=== PATIENT | male | born 1940 | race Caucasian/White ===

== ENCOUNTER → 2017-09-13 08:47 | Outpatient (CLI) | payer MEDICARE, SELFPAY ==
[2017-09-13 09:08] VITALS: PULSE 55; PULSE 57; PULSE 59; PULSE 61; PULSE 67; PULSE 68; PULSE 69; O2SAT 96; O2SAT 97
--- NOTE | 2017-09-13 16:35 | WT_ITS ---
PSN 6 Minute Walk Test - 6 Minute Walk Test 6 Minute Walk Test: 6 Minute Walk Test PSN:6-Minute Walk Test Start: 09/13/17 09: 08 Freq: Status: Active Protocol: [id number] Document 09/13/17 09:08 SANDHYA (Rec: 09/13/17 09:10 SANDHYA [id number]) 6 Minute Walk Test Date Performed 09/13/17 Time Performed 09:00 Height 5 ft 10 in Weight: 86.183 kg Weight in Pounds 190.[address]: Marcio Durham Assistive device used: None Pre-test Oxygen Delivery Method Room Air Pulse Ox (%) 96 Pulse Rate (60-100 beats/min) 57 L Dyspnea Winston Scale (0-10) 0 Exertion Winston Scale (6-20) 6 1st minute Oxygen Delivery Method Room Air Pulse Ox (%) 97 Pulse Rate (60-100 beats/min) 59 L 2nd minute Oxygen Delivery Method Room Air Pulse Ox (%) 96 Pulse Rate (60-100 beats/min) 61 3rd minute Oxygen Delivery Method Room Air Pulse Ox (%) 96 Pulse Rate (60-100 beats/min) 67 4th minute Oxygen Delivery Method Room Air Pulse Ox (%) 96 Pulse Rate (60-100 beats/min) 68 5th minute Oxygen Delivery Method Room Air Pulse Ox (%) 96 Pulse Rate (60-100 beats/min) 69 6th minute Oxygen Delivery Method Room Air Pulse Ox (%) 97 Pulse Rate (60-100 beats/min) 69 Dyspnea Winston Scale (0-10) 0.5 Exertion Winston Scale (6-20) 12 Post-test Oxygen Delivery Method Room Air Pulse Ox (%) 97 Pulse Rate (60-100 beats/min) 55 L Full Laps Walked 17 Partial Lap, Number of Tiles Walked 64 Total Distance Walked (ft) 1067 - Interpretation Interpretation: The patient was able to ambulate 1067 feet over the course of 6 minutes on room air with no assistive devices or breaks. No significant desaturation or tachycardia was noted during testing. These findings are consistent with a musculoskeletal limitation exercise tolerance. - Recommendations Recommendations: No supplemental oxygen is indicated at this time.
== END ==
PROVIDERS: Family Provider Family Medicine; PCP Family Medicine; Visit Provider Internal Medicine
DX: I27.20 Pulmonary hypertension, unspecified (principal)
CPT/HCPCS: 94618

== ENCOUNTER → 2017-09-28 07:57 | Outpatient (CLI) | payer MEDICARE, SELFPAY ==
--- NOTE | 2017-09-29 08:38 | PFT ---
INTRODUCTION: The patient is a 77-year-old male, currently under the care of Dr. Durham, that presents for pulmonary function testing secondary to a diagnosis of COPD. Respiratory therapy reports good patient effort and reports no other concerns. Bronchodilators were used during testing. INTERPRETATION: Forced expiration spirometry demonstrates no evidence of a large airways obstructive ventilatory defect. There was no significant response to aerosolized bronchodilators, based upon strict ATS criteria. Spirograms are of good quality and plateau gradually. Body plethysmography was performed and reveals a decreased TLC to 5.16 L, 80% of predicted, indicative of a mild restrictive ventilatory defect. The remainder of the lung volumes are symmetrically reduced. Diffusing capacity by single breath CO is mildly reduced at 67% of predicted. 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 There are no previous pulmonary function studies available for comparison.
== END ==
PROVIDERS: Family Provider Family Medicine; PCP Family Medicine; Visit Provider Internal Medicine
DX: J44.9 Chronic obstructive pulmonary disease, unspecified (principal)
CPT/HCPCS: 94060; 94726; 94729

== ENCOUNTER 2024-10-20 10:13 | Outpatient (RCR) | payer MEDICARE, MEDICAID, SELFPAY ==
--- NOTE | 2024-10-20 16:39 | HP.SP.EVAL ---
Visit History Visit Info Date of Eval: 10/20/24 Visit: 1 Utility Locator: [facility] History Attending Doctor: Referring Doctor: Reason for Referral: DYSPHAGIA, HOARSENESS. RX HERE Date of Onset of Diagnosis: 2 months ago Previous speech therapy: Yes Other Relevant Medical History/Diagnoses/Surgery: COPD Smoking Status: Former smoker Diagnosis Diagnosis: Dysphagia, hoarseness Pain Is pain an issue with your current prescribed condition?: No Personal Preferred language: Kiswahili Patient Allergies Allergies Allergies: Allergies aspirin (From Percodan) Adverse Reaction (Unknown, Verified 08/09/24 13:51) Upset Stomach oxycodone (From Percodan) Adverse Reaction (Unknown, Verified 08/09/24 13:51) Upset Stomach Subjective Dysphagia Symptoms Reported Symptoms/Problems with: Hx of Pneumonia Other: Pt and reported that ENT stated pt looked weak Current Diet Solids Current Diet: Regular Current Diet Liquids Current Liquids: Thin Comments _: -: Pt and stated that pt has no difficulty with swallowing. Pt reported that he experienced hoarseness in his voice in the mornings but it returns to his normal vocal quality throughout the day. Completed oral motor exam, WNL this date. Voice Handicap Index (VHI) VHI VHI Administered: Yes VHI: Patient completed the Voice Handicap Index, which is a 30 item, self administered questionnaire that asks an individual to describe their voice and the effects of their voice on their life. Three subscales cover the areas of functional, emotional, and physical aspects of the voice disorders. Points from the questions can be combined to assign a total score, or they can be combined by subscale. Results for the VHI are as follows: Date: 10/20/24 VHI Test Total Severity Rating: Mild (0-30) Comments -: -: Pt stated that he experiences hoarseness in his voice in the mornings, but it subsides throughout the day. Pt stated that his vocal quality does not have a negative impact on his daily life at this time. Subjective Clinical Impression Adult Clinical Impression Vocal fatigue: a 'tired' voice or feeling of excessive effort to phonate: Present Voice deterioration: reduction of volume or vocal quality with prolonged use: Present Non-Phonatory Behaviors/Respiration Reduced loudness or vocal weakness: Present Limited breath support for speech: Present Reference: Neuro-QoL instrument Radiation Oncology Patient Plan Plan Plan: At this time, pt and declined skilled speech therapy services. Recommendations Treatment Warranted: No Education Patient Instruction Patient Education: Diagnosis Person Taught: Patient and Significant Other Teaching Method: Discussion Response to teaching: Verbalize Understanding
== END 2024-10-20 19:00 | disposition home or self-care (01) ==
LOC: SP 10:13
PROVIDERS: PCP Student in an Organized Health Care Education/Training Program; Referring Provider Otolaryngology; Visit Provider Otolaryngology
DX: R13.10 Dysphagia, unspecified (principal); R53.1 Weakness
CPT/HCPCS: 92610